=== PATIENT | male | born 1960 | race Caucasian/White ===

== ENCOUNTER 2017-01-26 12:27 | Emergency (ER) | payer SELFPAY ==
[~2017-01-26] VITALS: Ht 172.7 cm; Wt 110.0 kg
[2017-01-26] MEDS ORDERED: SODIUM CHLORIDE 0.9% 1,000 ML IV SCH (12:38)
[2017-01-26] MEDS ORDERED: METHYLPREDNISOLONE SOD SUCC 125 MG/2 ML VIAL IV ONE (12:45)
[2017-01-26] MEDS ORDERED: ALBUTEROL (0.083%) 2.5MG/3ML NEB HHN ONE (12:45)
[2017-01-26] MEDS ORDERED: FAMOTIDINE 20MG/2ML VIAL IV ONE (12:45)
[2017-01-26 13:05] LABS: BASOPHILS % 0.4 % (0.0-2.0); HEMATOCRIT. 50.3 % (42.0-52.0); LYMPHOCYTES % 42.5 % (20.0-50.0); MEAN CORPUSCULAR HEMOGLOBIN 30.7 pg (28.0-32.0); MEAN CORPUSCULAR HGB CONC 33.9 g/dL (31.0-37.0); MEAN CORPUSCULAR VOLUME 90.7 fL (80.0-94.0); MEAN PLATELET VOLUME 9.2 fl (7.4-10.4); MONOCYTES % 5.5 % (2.0-8.0); NEUTROPHILS % 50.6 % (40.0-76.0); PLATELET 172 x1000/uL (130-400); RED BLOOD CELL COUNT 5.54 mill/uL (4.7-6.1); RED CELL DISTRIBUTION WIDTH 13.7 % (11.6-14.6); WHITE BLOOD COUNT 12.7 x1000/uL (4.5-11.0)
[2017-01-26 13:12] LABS: CHLORIDE 106 mEq/L (98-107); INDEX HEMOLYSI 1 (1-3); INDEX ICTERIC 1 (1-4); INDEX LIPEMIC 1 (1-3)
[2017-01-26 13:21] LABS: ALANINE AMINOTRANSFERASE 58 IU/L (13-61); ANION GAP 14; CALCIUM 8.4 mg/dL (8.5-10.1); CARBON DIOXIDE 23 mEq/L (21-32); TROPONIN I < 0.02 ng/mL (0.00-0.04); UREA NITROGEN BLOOD 11 mg/dL (7-21); eGFR > 60 mL/min (>60)
[2017-01-26 16:13] VITALS: BP 136/71
== END 2017-01-26 16:25 | disposition home or self-care (01) ==
LOC: ER 12:34
DX: T78.40XA Allergy, unspecified, initial encounter (principal); K08.89 Other specified disorders of teeth and supporting structures; R06.02 Shortness of breath; L50.9 Urticaria, unspecified; L29.9 Pruritus, unspecified; Z88.0 Allergy status to penicillin
CPT/HCPCS: 36415; 80053; 84484; 85025; 93005; 96361; 96374; 96375; 99285; J2930; J3490; J7030; J7611; Z7610